=== PATIENT | male | born 1960 | race African-American/Black ===

== ENCOUNTER 2024-01-03 10:40 | Emergency (ER) | payer MEDICAID ==
[~2024-01-03] VITALS: Ht 182.9 cm; Wt 67.0 kg
[2024-01-03 12:25] VITALS: BP 144/91; PULSE 76; RESP 18; TEMP 98.5; O2SAT 96
[2024-01-03] MEDS: KETOROLAC TROMETH 30 MG/ML 1ML VIAL IM ONE (13:10)
[2024-01-03] MEDS: HYDROcodone-ACET 5/325MG TAB PO ONE (13:10)
== END 2024-01-03 14:19 | disposition home or self-care (01) ==
LOC: ER 10:40
DX: S62.235A Other nondisplaced fracture of base of first metacarpal bone, left hand, initial encounter for closed fracture (principal); R07.89 Other chest pain; V43.52XA Car driver injured in collision with other type car in traffic accident, initial encounter; Y93.89 Activity, other specified; Y92.488 Other paved roadways as the place of occurrence of the external cause; Y99.8 Other external cause status
CPT/HCPCS: 29125; 71046; 73090; 73110; 96372; 99284; J1885

== ENCOUNTER 2024-01-07 09:18 | Emergency (ER) | payer MEDICAID ==
[~2024-01-07] VITALS: Ht 188 cm; Wt 92.9 kg
[2024-01-07 10:28] VITALS: BP 136/97; PULSE 100; RESP 14; TEMP 99.4; O2SAT 97
[2024-01-07] MEDS ORDERED: METH-1182 PO (11:22)
== END 2024-01-07 11:35 | disposition home or self-care (01) ==
LOC: ER 09:18
DX: S29.011A Strain of muscle and tendon of front wall of thorax, initial encounter (principal); F17.210 Nicotine dependence, cigarettes, uncomplicated; Z79.899 Other long term (current) drug therapy; V49.9XXA Car occupant (driver) (passenger) injured in unspecified traffic accident, initial encounter; Y93.I9 Activity, other involving external motion; Y92.89 Other specified places as the place of occurrence of the external cause; Y99.8 Other external cause status
CPT/HCPCS: 71111